=== PATIENT | female | born 1945 | race Two or more races ===

== ENCOUNTER 2017-05-27 19:56 | Emergency (ER) | payer OTHER ==
[~2017-05-27] VITALS: Ht 142.2 cm; Wt 39.9 kg
--- NOTE | 2017-05-27 20:05 | NUR ---
TO BED 2 AMBULATORY BIB DAUGHTER C/O MIDEPIGASTRIC PAIN RADIATING TO CHEST SINCE LAST NIGHT. PT DAUGHTER AT BEDSIDE TO TRANSLATE. PT ASLO REPORT THE SAME PAIN LAS WEEK BUT WENT AWAY AFTER A COUPLE OF HOURS. PT DESCRIBES PAIN BURNING LIKE SENSATION. PT AAOX4 NO ACUTE DISTRESS NOTED, RESP EVEN AND UNLABORED. PLACE PT ON CARDIAC MONITORING, CONTINUOUS POX. PENDING ER MD CERVANTES.
--- NOTE | 2017-05-27 20:05 | NUR ---
URINE SAMPLE COLLECTED AND SENT TO LAB.
--- NOTE | 2017-05-27 20:13 | NUR ---
JACKIE STEVENOSN AT BEDSIDE TO HELEN ALLEN.
--- NOTE | 2017-05-27 20:15 | NUR ---
STARTED SL 18G TO L WRIST.
[2017-05-27] MEDS ORDERED: FAMOTIDINE/PF INJ 20 MG/2 ML VIAL IV ONE ×2 (20:25→20:30)
--- NOTE | 2017-05-27 20:25 | NUR ---
STAKE SETTER AT BEDSIDE FOR BLOOD DRAW.
--- NOTE | 2017-05-27 20:27 | NUR ---
RN AT BEDSIDE TO MEDICATE PT.
[2017-05-27] MEDS ORDERED: IV NS 0.9% 500 ML BAG IV ONE (20:30)
[2017-05-27 20:37] LABS: BASOPHILS % (AUTO) 0.6 % (0.0-2.0); EOSINOPHILS # (AUTO) 0.2 /CMM (0.0-0.7); EOSINOPHILS % (AUTO) 3.5 % (0.0-6.0); HEMATOCRIT 45 % (33-45); HEMOGLOBIN 14.7 g/dL (11.5-14.8); LYMPHOCYTES # (AUTO) 1.6 /CMM (0.8-4.8); LYMPHOCYTES % (AUTO) 22.4 % (20.0-44.0); MEAN CORPUSCULAR HEMOGLOBIN 30 PG (26.0-33.0); MEAN CORPUSCULAR HGB CONC 33 g/dl (31.0-36.0); MEAN CORPUSCULAR VOLUME 91 fL (82-100); MONOCYTES # (AUTO) 0.6 /CMM (0.1-1.30); MONOCYTES % (AUTO) 8.2 % (2.0-12.0); NEUTROPHILS # (AUTO) 4.7 /CMM (1.8-8.9); NEUTROPHILS % (AUTO) 65.3 % (43.0-81.0); PLATELET COUNT (AUTO) 218 /CMM (150-450); RDW COEFFICIENT OF VARIATION 11.7 (11.5-15.0); RED BLOOD CELL COUNT(AUTO) 4.93 MIL/uL (4.0-5.2); WHITE BLOOD COUNT (AUTO) 7.1 K/uL (4.3-11.0)
[2017-05-27 20:41] LABS: APPEARANCE,URINE Clear (CLEAR); BILIRUBIN,URINE Negative (NEGATIVE); BLOOD, URINE Negative Ery/uL (NEGATIVE); COLOR,URINE Yellow (YELLOW); KETONES,URINE Negative (NEGATIVE); LEUKOCYTE ESTERASE ,URINE Negative (NEGATIVE); NITRITE, URINE Negative (NEGATIVE); PH,URINE 6.5 (5.0-8.0); PROTEIN,URINE Negative (NEGATIVE); UGLUCOSE Negative (NEGATIVE); UROBILINOGEN,URINE 0.2 EU/dL (0.2)
[2017-05-27 20:51] LABS: INR 1.08 (0.87-1.13); PROTHROMBIN TIME 11.2 SECS (9.5-12.7)
[2017-05-27 20:53] LABS: ALANINE AMINOTRANSFERASE 19 U/L (12-78); ALKALINE PHOSPHATASE 110 U/L (46-116); ASPARTATE AMINOTRANSFERASE 28 U/L (15-37); BILIRUBIN,DIRECT 0.2 mg/dL (0.0-0.2); BILIRUBIN,TOTAL 1.4 mg/dL (0.2-1.0); CARBON DIOXIDE 25 mmol/L (21-32); CHLORIDE 104 mmol/L (98-107); CREATININE 0.7 mg/dL (0.6-1.3); GLUCOSE 102 mg/dL (74-106); LIPASE 316 U/L (73-393); POTASSIUM 3.7 mmol/L (3.5-5.1); SODIUM SERUM 140 mmol/L (136-145); TOTAL PROTEIN, SERUM 7.7 g/dL (6.4-8.2); UREA NITROGEN, BLOOD 11 mg/dL (7-18)
--- NOTE | 2017-05-27 20:53 | NUR ---
PT RETURNED FROM CT.
[2017-05-27 20:55] LABS: TROPONIN I < 0.017 ng/mL (0.00-0.056)
--- NOTE | 2017-05-27 21:28 | NUR ---
IV removed. Catheter intact and site benign. Pressure and 4x4 applied to site. No bleeding noted. Patient discharged to home in stable condition. Written and verbal after care instructions given. Patient verbalizes understanding of instruction. ambulatory with a steady gait. pt daughter at bedside to take pt home.
[2017-05-27 21:29] VITALS: BP 116/74
== END 2017-05-27 21:29 | disposition home or self-care (01) ==
LOC: ER 19:58
DX: K80.20 Calculus of gallbladder without cholecystitis without obstruction (principal); E03.9 Hypothyroidism, unspecified; E78.00 Pure hypercholesterolemia, unspecified
CPT/HCPCS: 36415; 71010; 71250; 74176; 80048; 80076; 81001; 83690; 84484; 85025; 85730; 93005; 96374; 99285; A4606; J3490; J7040 ×2; Z7610; 81000-TC

== ENCOUNTER 2019-09-03 11:19 | Emergency (ER) | payer OTHER ==
[~2019-09-03] VITALS: Ht 142.2 cm; Wt 40.4 kg
--- NOTE | 2019-09-03 11:23 | NUR ---
BIB DAUGHTER FROM HOME, C/O LEFT SIDED CHEST PRESSURE LIKE PAIN, RADIATING TO L ARM, 04/24 PS, DAUGHTER STATED CHEST PAIN OF PATIENT STARTED YESTERDAY AT 1830, TO ER BED 9, HOOKED TO HOSTING ENGINEER, AOx4, BREATHING EVEN AND UNLABORED, HANGED TO HOSPITAL GOWN, PROVIDED W WARM BLANKET, DR WESTON AT BEDSIDE
[2019-09-03] MEDS ORDERED: ASPIRIN 325 MG TABLET ONE (11:41)
[2019-09-03] MEDS ORDERED: ONDANSETRON HCL/PF 4 MG/2 ML VIAL ONE (11:41)
[2019-09-03] MEDS ORDERED: MORPHINE SULFATE INJ 2 MG/ML DISP.SYRIN ONE (11:41)
--- NOTE | 2019-09-03 11:41 | NUR ---
EKG AT BEDSIDE
[2019-09-03] MEDS ORDERED: IBUPROFEN 600 MG TABLET PO ONE ×2 (11:53→12:00)
[2019-09-03] MEDS ORDERED: ASPIRIN 325 MG TABLET PO ONE (12:00)
[2019-09-03] MEDS ORDERED: MORPHINE SULFATE INJ 2 MG/ML DISP.SYRIN IV ONE (12:00)
[2019-09-03] MEDS ORDERED: ONDANSETRON HCL/PF 4 MG/2 ML VIAL IV ONE (12:00)
[2019-09-03 12:04] LABS: BASOPHILS % (AUTO) 0.6 % (0.0-2.0); EOSINOPHILS % (AUTO) 3.7 % (0.0-6.0); HEMATOCRIT 45 % (33-45); HEMOGLOBIN 14.8 g/dL (11.5-14.8); LYMPHOCYTES # (AUTO) 2.1 /CMM (0.8-4.8); LYMPHOCYTES % (AUTO) 29.2 % (20.0-44.0); MEAN CORPUSCULAR HGB CONC 33 g/dl (31.0-36.0); MEAN CORPUSCULAR VOLUME 93 fL (82-100); MONOCYTES # (AUTO) 0.7 /CMM (0.1-1.30); MONOCYTES % (AUTO) 9.5 % (2.0-12.0); PLATELET COUNT (AUTO) 169 /CMM (150-450); RED BLOOD CELL COUNT(AUTO) 4.78 MIL/uL (4.0-5.2); WHITE BLOOD COUNT (AUTO) 7.1 K/uL (4.3-11.0)
[2019-09-03 12:15] LABS: CARBON DIOXIDE 29 mmol/L (21-32); CHLORIDE 106 mmol/L (98-107); CREATININE 0.8 mg/dL (0.6-1.3); GLUCOSE 100 mg/dL (74-106); POTASSIUM 3.4 mmol/L (3.5-5.1); SODIUM SERUM 142 mmol/L (136-145); UREA NITROGEN, BLOOD 10 mg/dL (7-18)
[2019-09-03 12:26] LABS: B-TYPE NATRIURETIC PEPTIDE 72 PG/ML (0-125)
--- NOTE | 2019-09-03 12:46 | NUR ---
IV removed. Catheter intact and site benign. Pressure and 4x4 applied to site. No bleeding noted.Patient discharged to home in stable condition. Written and verbal after care instructions given. Patient verbalizes understanding of instruction.
[2019-09-03 12:53] VITALS: BP 106/73
== END 2019-09-03 12:54 | disposition home or self-care (01) ==
LOC: ER 11:21
DX: R07.89 Other chest pain (principal); I10 Essential (primary) hypertension; E03.9 Hypothyroidism, unspecified; E78.00 Pure hypercholesterolemia, unspecified
CPT/HCPCS: 36415; 71045-TC; 80048-TC; 83880; 84484-TC; 85025-TC; J2270; J2405